=== PATIENT | female | born 1990 | race Caucasian/White ===

== ENCOUNTER 2021-01-31 18:15 | Emergency (ER) | payer OTHER ==
[~2021-01-31] VITALS: Ht 167.6 cm; Wt 75.0 kg
[2021-01-31 18:25] VITALS: TEMP 97.6
[2021-01-31 19:46] VITALS: BP 117/82; PULSE 75
== END 2021-01-31 19:48 | disposition home or self-care (01) ==
LOC: COL.ER 18:15
PROVIDERS: Nurse Practitioner
DX: T58.91XA Toxic effect of carbon monoxide from unspecified source, accidental (unintentional), initial encounter (principal); R51.9 Headache, unspecified